=== PATIENT | male | born 1975 | race African-American/Black ===

== ENCOUNTER → 2021-04-29 06:35 | Outpatient (CLI) | payer OTHER, SELFPAY ==
[2021-04-29 16:44] LABS: SARS-CoV-2 RNA PCR Negative
== END ==
PROVIDERS: PCP Emergency Medicine; Visit Provider Emergency Medicine
DX: R68.89 Other general symptoms and signs (principal); Z20.822 Contact with and (suspected) exposure to COVID-19
CPT/HCPCS: C9803; U0003; U0005